=== PATIENT | female | born 1980 | race Caucasian/White ===

== ENCOUNTER 2020-06-10 20:56 | Emergency (ER) | payer SELFPAY ==
[~2020-06-10] VITALS: Wt 86.2 kg
[2020-06-10 22:49] LABS: BASO # 0.1 10*3/uL (0.0-0.1); EOS # 0.1 10*3/uL (0.0-0.4); HEMATOCRIT 29.8 % (37.0-47.0); LYMPH # 1.1 10*3/uL (1.3-4.4); LYMPH % 36.5 % (27.0-41.0); MEAN CELL VOLUME 72.9 fl (81.0-99.0); MEAN CORPUSCULAR HGB 18.3 pg (27.0-31.0); MEAN CORPUSCULAR HGB CONC 25.2 g/dl (33.0-37.0); MONO # 0.3 10*3/uL (0.1-1.0); NEUT # 1.5 10*3/uL (2.3-7.9); NEUT % 49.2 % (47.0-73.0); PLATELET COUNT AUTOMATED 200 10*3/uL (130-400); RED BLOOD COUNT 4.09 10*6/uL (4.10-5.10); RED CELL DISTRI WIDTH 19.5 % (0-14.5)
[2020-06-10 23:05] LABS: ALBUMIN 3.7 gm/dl (3.1-4.5); ALKALINE PHOSPHATASE 46 U/L (45-117); BUN 4 mg/dl (7-24); CHLORIDE 102 mmol/L (98-107); CREATININE 0.41 mg/dL (0.55-1.02); POTASSIUM 3.4 mmol/L (3.5-5.1); SGOT/AST 91 IU/L (3-35); SGPT/ALT 69 U/L (12-78); SODIUM 138 mmol/L (136-145); TOTAL PROTEIN 7.6 gm/dL (6.4-8.2)
[2020-06-10 23:07] LABS: TROPONIN I < 0.015 ng/ml (<0.045)
[2020-06-11 00:50] VITALS: BP 138/81
== END 2020-06-11 01:25 | disposition home or self-care (01) ==
LOC: ED 20:56
PROVIDERS: Emergency Medicine
DX: D64.9 Anemia, unspecified (principal); I10 Essential (primary) hypertension; R00.2 Palpitations; Z53.29 Procedure and treatment not carried out because of patient's decision for other reasons; Z88.8 Allergy status to other drugs, medicaments and biological substances

== ENCOUNTER 2021-02-19 16:37 | Emergency (ER) | payer SELFPAY ==
[~2021-02-19] VITALS: Ht 160 cm; Wt 79.4 kg
[2021-02-19 17:31] LABS: HEMATOCRIT 24.5 % (37.0-47.0); MEAN CELL VOLUME 73.8 fl (81.0-99.0); MEAN CORPUSCULAR HGB 18.7 pg (27.0-31.0); MEAN CORPUSCULAR HGB CONC 25.3 g/dl (33.0-37.0); MEAN PLATELET VOLUME 10.2 fl (9.6-12.3); NUCLEATED RED BLOOD CELL 0.5 % (0.0-0.0); PLATELET COUNT AUTOMATED 323 10*3/uL (130-400); RED BLOOD COUNT 3.32 10*6/uL (4.10-5.10); RED CELL DISTRI WIDTH 19.2 % (0-14.5); WHITE BLOOD COUNT 8.3 10*3/uL (4.8-10.8)
[2021-02-19 17:44] LABS: ALBUMIN 3.5 gm/dl (3.1-4.5); BUN 3 mg/dl (7-24); CHLORIDE 109 mmol/L (98-107); CREATININE 0.47 mg/dL (0.55-1.02); LIPASE 349 U/L (73-393); SGOT/AST 41 IU/L (3-35); SGPT/ALT 36 U/L (12-78); SODIUM 142 mmol/L (136-145); TOTAL PROTEIN 7.3 gm/dL (6.4-8.2)
[2021-02-19 17:45] LABS: ALKALINE PHOSPHATASE 41 U/L (45-117); BETA-HCG, QUANT < 1.0 mIU/mL (1-3); TROPONIN I < 0.015 ng/ml (<0.045)
[2021-02-19 17:49] LABS: ATYPICAL LYMPHS 1 % (0-0); BASOPHILS 2 % (0-1); TOTAL CELLS COUNTED 100 #CELLS
[2021-02-19 17:50] LABS: MICROCYTOSIS MODERATE; PLATELET SUFFICIENCY NORMAL (NORMAL)
[2021-02-19 17:51] LABS: POLYCHROMASIA SLIGHT; STOMATOCYTE FEW
[2021-02-20 08:01] LABS: IRON 16 ug/dL (50-170); TOTAL IRON BINDING CAPACITY 496 ug/dl (250-450)
[2021-02-20 08:02] LABS: ETHYL ALCOHOL < 3.0 mg/dl (<3)
[2021-02-20 08:07] LABS: RETICULOCYTE % 2.14 % (0.50-2.50)
[2021-02-20 08:13] LABS: HEMATOCRIT 22.4 % (37.0-47.0)
[2021-02-20 08:16] LABS: ACT PARTIAL THROMBO TIME 22.5 SECONDS (20.0-32.1); INTERNATIONAL NORM RATIO 1.1 (2.0-3.5)
[2021-02-20 09:35] VITALS: BP 152/85
[2021-02-20] MEDS ORDERED: MIRALAX POWDER17 G1 PO (10:13)
[2021-02-20] MEDS ORDERED: IRON325 M1 PO (10:13)
[2021-02-20 11:27] VITALS: BP 154/85
[2021-02-20 11:54] VITALS: BP 154/87
[2021-02-20 12:12] VITALS: BP 149/92
[2021-02-20 14:00] VITALS: BP 168/93
== END 2021-02-20 14:46 | disposition left against medical advice (07) ==
LOC: ED 16:37
PROVIDERS: Emergency Medicine
DX: F43.21 Adjustment disorder with depressed mood (principal); F10.920 Alcohol use, unspecified with intoxication, uncomplicated; N93.8 Other specified abnormal uterine and vaginal bleeding; D50.9 Iron deficiency anemia, unspecified; Z88.6 Allergy status to analgesic agent; Y90.8 Blood alcohol level of 240 mg/100 ml or more

== ENCOUNTER → 2021-05-14 | Outpatient (CLI) | payer OTHER ==
[~2021-05-14] MED LIST: IRON325 M1 PO; MIRALAX POWDER17 G1 PO
== END | disposition home or self-care (01) ==
LOC: COVID19 15:38
PROVIDERS: ATTEND Internal Medicine
DX: Z11.52 Encounter for screening for COVID-19 (principal)

== ENCOUNTER 2021-08-31 03:12 | Emergency (ER) | payer SELFPAY ==
[~2021-08-31] VITALS: Ht 160 cm; Wt 79.4 kg
[2021-08-31 03:15] VITALS: BP 169/108
[2021-08-31 03:29] LABS: BASO % 0.9 % (0.0-1.0); EOS % 0.5 % (1.0-4.0); HEMATOCRIT 29.4 % (37.0-47.0); LYMPH # 0.7 10*3/uL (1.3-4.4); LYMPH % 16.2 % (27.0-41.0); MEAN CELL VOLUME 79.5 fl (81.0-99.0); MEAN CORPUSCULAR HGB CONC 28.9 g/dl (33.0-37.0); MEAN PLATELET VOLUME 9.6 fl (9.6-12.3); MONO # 0.4 10*3/uL (0.1-1.0); NEUT # 3.2 10*3/uL (2.3-7.9); NEUT % 71.9 % (47.0-73.0); PLATELET COUNT AUTOMATED 165 10*3/uL (130-400); RED CELL DISTRI WIDTH 18.7 % (0-14.5); WHITE BLOOD COUNT 4.4 10*3/uL (4.8-10.8)
[2021-08-31 03:44] LABS: ALBUMIN 3.6 gm/dl (3.1-4.5); ALKALINE PHOSPHATASE 51 U/L (45-117); BUN 4 mg/dl (7-24); CHLORIDE 98 mmol/L (98-107); CREATININE 0.57 mg/dL (0.55-1.02); POTASSIUM 3.2 mmol/L (3.5-5.1); SGOT/AST 50 IU/L (3-35); SGPT/ALT 34 U/L (12-78); SODIUM 136 mmol/L (136-145); TOTAL PROTEIN 7.2 gm/dL (6.4-8.2)
[2021-08-31 03:46] LABS: ETHYL ALCOHOL < 3.0 mg/dl (<3)
[2021-08-31 03:58] LABS: BILIRUBIN Negative (Negative); BLOOD 2+ (Negative); CLARITY Cloudy (Clear); COLOR Yellow (Yellow); GLUCOSE Negative (Negative); KETONE 1+ (Negative); LEUKO ESTERASE Negative (Negative); NITRITE Negative (Negative); PH 7.5 (4.5-8.0); SPECIFIC GRAVITY 1.015 (1.001-1.030)
[2021-08-31 04:04] LABS: BACTERIA 2+; EPITHELIAL CELLS 41-50; RBC 16-20 rbc/hpf (0-2)
[2021-08-31 04:07] LABS: URINE AMPHETAMINES < 1000 (1000ng/ml); URINE BARBITURATES < 200 (200ng/ml); URINE BENZODIAZEPINES < 200 (200ng/ml); URINE CANNABINOIDS (THC) < 50 (50ng/ml); URINE COCAINE < 300 (300ng/ml); URINE METHADONE < 300 (300ng/ml); URINE OPIATES < 300 (300ng/ml)
[2021-08-31 04:09] LABS: URINE PHENCYCLIDINE < 25 (25ng/ml)
== END 2021-08-31 10:45 | disposition home or self-care (01) ==
LOC: ED 03:12
PROVIDERS: Internal Medicine
DX: R56.9 Unspecified convulsions (principal); E87.8 Other disorders of electrolyte and fluid balance, not elsewhere classified; D50.9 Iron deficiency anemia, unspecified; Z88.6 Allergy status to analgesic agent; Z79.899 Other long term (current) drug therapy; Z90.89 Acquired absence of other organs

== ENCOUNTER 2022-01-20 09:45 | Emergency (ER) | payer SELFPAY ==
[2022-01-20 10:17] LABS: BASO # 0.1 10*3/uL (0.0-0.1); BASO % 1.3 % (0.0-1.0); EOS % 0.4 % (1.0-4.0); HEMATOCRIT 25.6 % (37.0-47.0); LYMPH # 0.7 10*3/uL (1.3-4.4); LYMPH % 15.7 % (27.0-41.0); MEAN CORPUSCULAR HGB 20.8 pg (27.0-31.0); MEAN CORPUSCULAR HGB CONC 27.3 g/dl (33.0-37.0); MEAN PLATELET VOLUME 10.2 fl (9.6-12.3); MONO # 0.6 10*3/uL (0.1-1.0); MONO % 12.3 % (3.0-9.0); NEUT # 3.3 10*3/uL (2.3-7.9); NEUT % 69.7 % (47.0-73.0); NUCLEATED RED BLOOD CELL 0.4 % (0.0-0.0); PLATELET COUNT AUTOMATED 253 10*3/uL (130-400); RED BLOOD COUNT 3.37 10*6/uL (4.10-5.10); RED CELL DISTRI WIDTH 25.1 % (0-14.5); WHITE BLOOD COUNT 4.7 10*3/uL (4.8-10.8)
[2022-01-20 11:07] LABS: ALKALINE PHOSPHATASE 63 U/L (45-117); BUN 4 mg/dl (7-24); CHLORIDE 97 mmol/L (98-107); CREATININE 0.62 mg/dL (0.55-1.02); LIPASE 825 U/L (73-393); POTASSIUM 3.1 mmol/L (3.5-5.1); SGOT/AST 100 IU/L (3-35); SGPT/ALT 47 U/L (12-78); SODIUM 134 mmol/L (136-145); TOTAL PROTEIN 6.8 gm/dL (6.4-8.2)
[2022-01-20 11:55] VITALS: BP 106/73
== END 2022-01-20 13:03 | disposition home or self-care (01) ==
LOC: ED 09:45
PROVIDERS: Family Medicine
DX: F10.929 Alcohol use, unspecified with intoxication, unspecified (principal); Y90.9 Presence of alcohol in blood, level not specified

== ENCOUNTER 2022-02-10 08:05 | Emergency (ER) | payer MEDICAID ==
[~2022-02-10] VITALS: Ht 157.4 cm; Wt 65.8 kg
[2022-02-10 08:31] LABS: BASO # 0.1 10*3/uL (0.0-0.1); BASO % 1.5 % (0.0-1.0); EOS # 0.1 10*3/uL (0.0-0.4); EOS % 1.5 % (1.0-4.0); LYMPH # 1.4 10*3/uL (1.3-4.4); LYMPH % 29.3 % (27.0-41.0); MEAN CELL VOLUME 78.1 fl (81.0-99.0); MEAN CORPUSCULAR HGB 21.6 pg (27.0-31.0); MEAN CORPUSCULAR HGB CONC 27.7 g/dl (33.0-37.0); MEAN PLATELET VOLUME 9.4 fl (9.6-12.3); MONO # 0.6 10*3/uL (0.1-1.0); NEUT # 2.5 10*3/uL (2.3-7.9); NEUT % 54.3 % (47.0-73.0); PLATELET COUNT AUTOMATED 133 10*3/uL (130-400); RED BLOOD COUNT 3.33 10*6/uL (4.10-5.10); RED CELL DISTRI WIDTH 23.3 % (0-14.5); WHITE BLOOD COUNT 4.6 10*3/uL (4.8-10.8)
[2022-02-10 08:47] LABS: ACT PARTIAL THROMBO TIME 25.4 SECONDS (20.0-32.1); ALKALINE PHOSPHATASE 77 U/L (45-117); BUN 5 mg/dl (7-24); CHLORIDE 98 mmol/L (98-107); CREATININE 0.52 mg/dL (0.55-1.02); LIPASE 1374 U/L (73-393); POTASSIUM 3.2 mmol/L (3.5-5.1); SGOT/AST 106 IU/L (3-35); SGPT/ALT 36 U/L (12-78); SODIUM 137 mmol/L (136-145); TOTAL PROTEIN 7.3 gm/dL (6.4-8.2)
[2022-02-10 09:28] LABS: BILIRUBIN Negative (Negative); BLOOD 3+ (Negative); CLARITY Cloudy (Clear); GLUCOSE Negative (Negative); KETONE 1+ (Negative); LEUKO ESTERASE 2+ (Negative); NITRITE Negative (Negative); SPECIFIC GRAVITY <= 1.005 (1.001-1.030)
[2022-02-10 09:37] LABS: COLOR Red (Yellow)
[2022-02-10 09:39] LABS: BACTERIA 2+
[2022-02-10 09:46] LABS: URINE AMPHETAMINES < 1000 (1000ng/ml); URINE BARBITURATES < 200 (200ng/ml); URINE BENZODIAZEPINES < 200 (200ng/ml); URINE CANNABINOIDS (THC) < 50 (50ng/ml); URINE COCAINE < 300 (300ng/ml); URINE METHADONE < 300 (300ng/ml); URINE OPIATES < 300 (300ng/ml)
[2022-02-10 09:48] LABS: URINE PHENCYCLIDINE < 25 (25ng/ml)
[2022-02-10 10:42] LABS: IRON 18 ug/dL (50-170); TOTAL IRON BINDING CAPACITY 476 ug/dl (250-450)
[2022-02-10] MEDS ORDERED: MAGNESIUM400 M1 PO (10:54)
[2022-02-10] MEDS ORDERED: NATURE'S BLEND100 M2 PO (10:54)
[2022-02-10] MEDS ORDERED: IRON325 M3 PO (10:54)
[2022-02-10] MEDS ORDERED: POTASSIUM CHLO20 ME3 PO (10:54)
[2022-02-10] MEDS ORDERED: NATURE'S BLEND F1 MG PO (10:59)
[2022-02-10 14:41] VITALS: BP 133/78
== END 2022-02-10 15:06 | disposition home or self-care (01) ==
LOC: ED 08:05
PROVIDERS: Emergency Medicine
DX: F10.929 Alcohol use, unspecified with intoxication, unspecified (principal); D64.9 Anemia, unspecified; E87.6 Hypokalemia; E83.42 Hypomagnesemia; I10 Essential (primary) hypertension; Z88.6 Allergy status to analgesic agent; Y90.9 Presence of alcohol in blood, level not specified

== ENCOUNTER 2022-08-30 15:12 | Inpatient (IN) | payer MEDICAID ==
[~2022-08-30] VITALS: Ht 160 cm; Wt 76.0 kg
[~2022-08-30 15:12] MED LIST changes: +IRON325 M3 PO; +MAGNESIUM400 M1 PO; +NATURE'S BLEND F1 MG PO; +NATURE'S BLEND100 M2 PO; +POTASSIUM CHLO20 ME3 PO
[2022-08-30 15:26] VITALS: BP 163/111
[2022-08-30 16:01] LABS: BASO % 0.6 % (0.0-1.0); EOS % 0.5 % (1.0-4.0); HEMATOCRIT 41.1 % (37.0-47.0); LYMPH % 48.4 % (27.0-41.0); MEAN CELL VOLUME 87.1 fl (81.0-99.0); MEAN CORPUSCULAR HGB 28.8 pg (27.0-31.0); MEAN CORPUSCULAR HGB CONC 33.1 g/dl (33.0-37.0); MEAN PLATELET VOLUME 9.8 fl (9.6-12.3); MONO # 0.6 10*3/uL (0.1-1.0); MONO % 8.8 % (3.0-9.0); NEUT # 2.6 10*3/uL (2.3-7.9); NEUT % 41.4 % (47.0-73.0); PLATELET COUNT AUTOMATED 254 10*3/uL (130-400); RED BLOOD COUNT 4.72 10*6/uL (4.10-5.10); RED CELL DISTRI WIDTH 18.8 % (0-14.5); WHITE BLOOD COUNT 6.2 10*3/uL (4.8-10.8)
[2022-08-30 16:12] LABS: ACT PARTIAL THROMBO TIME 27.5 SECONDS (20.0-32.1)
[2022-08-30 16:18] LABS: ALKALINE PHOSPHATASE 72 U/L (46-116); BETA-HCG, QUANT < 3.0 mIU/mL (0-10); BUN 15 mg/dl (9-23); CHLORIDE 103 mmol/L (98-107); LIPASE 42 U/L (12-53); POTASSIUM 3.7 mmol/L (3.4-5.1); SGPT/ALT 15 U/L (10-49); TOTAL PROTEIN 7.7 gm/dL (6.0-8.0)
[2022-08-31] VITALS (9 sets, daily range): BP systolic 145–183; BP diastolic 90–113
[2022-08-31 06:19] LABS: BASO % 0.5 % (0.0-1.0); EOS % 0.6 % (1.0-4.0); HEMATOCRIT 35.8 % (37.0-47.0); LYMPH # 2.4 10*3/uL (1.3-4.4); LYMPH % 38.4 % (27.0-41.0); MEAN CELL VOLUME 89.3 fl (81.0-99.0); MEAN CORPUSCULAR HGB 29.2 pg (27.0-31.0); MEAN CORPUSCULAR HGB CONC 32.7 g/dl (33.0-37.0); MEAN PLATELET VOLUME 9.9 fl (9.6-12.3); MONO # 0.5 10*3/uL (0.1-1.0); MONO % 7.3 % (3.0-9.0); NEUT # 3.3 10*3/uL (2.3-7.9); PLATELET COUNT AUTOMATED 188 10*3/uL (130-400); RED BLOOD COUNT 4.01 10*6/uL (4.10-5.10); WHITE BLOOD COUNT 6.2 10*3/uL (4.8-10.8)
[2022-08-31 06:29] LABS: ALKALINE PHOSPHATASE 57 U/L (46-116); BUN 12 mg/dl (9-23); CHLORIDE 107 mmol/L (98-107); POTASSIUM 3.7 mmol/L (3.4-5.1); SGPT/ALT 13 U/L (10-49); TOTAL PROTEIN 6.2 gm/dL (6.0-8.0)
[2022-08-31 07:26] LABS: INTERNATIONAL NORM RATIO 1.1 (2.0-3.5)
[2022-08-31 08:59] LABS: BILIRUBIN Negative (Negative); BLOOD Negative (Negative); CLARITY Clear (Clear); COLOR Yellow (Yellow); GLUCOSE Negative (Negative); KETONE Negative (Negative); LEUKO ESTERASE Negative (Negative); NITRITE Negative (Negative); PH 5.5 (4.5-8.0); SPECIFIC GRAVITY 1.015 (1.001-1.030); UROBILINOGEN 0.2 E.U./dl (0.0-1.0)
[2022-08-31 09:10] LABS: URINE AMPHETAMINES Negative (1000ng/ml); URINE BARBITURATES Negative (200ng/ml); URINE BENZODIAZEPINES Negative (200ng/ml); URINE CANNABINOIDS (THC) Negative (50ng/ml); URINE COCAINE Negative (300ng/ml); URINE METHADONE Negative (300ng/ml); URINE OPIATES Negative (300ng/ml); URINE PHENCYCLIDINE Negative (25ng/ml)
[2022-08-31 09:21] LABS: BACTERIA 1+; EPITHELIAL CELLS 31-40; RBC 0-2 rbc/hpf (0-2); WBC 0-2 wbc/hpf (0-5)
[2022-09-01] VITALS (7 sets, daily range): BP systolic 135–157; BP diastolic 58–108
[2022-09-01 04:36] LABS: BASO % 0.5 % (0.0-1.0); EOS # 0.1 10*3/uL (0.0-0.4); EOS % 1.3 % (1.0-4.0); LYMPH # 1.8 10*3/uL (1.3-4.4); LYMPH % 28.9 % (27.0-41.0); MEAN CELL VOLUME 88.6 fl (81.0-99.0); MEAN CORPUSCULAR HGB 29.4 pg (27.0-31.0); MEAN CORPUSCULAR HGB CONC 33.2 g/dl (33.0-37.0); MEAN PLATELET VOLUME 9.5 fl (9.6-12.3); MONO # 0.5 10*3/uL (0.1-1.0); MONO % 8.8 % (3.0-9.0); NEUT # 3.7 10*3/uL (2.3-7.9); NEUT % 60.3 % (47.0-73.0); PLATELET COUNT AUTOMATED 177 10*3/uL (130-400); RED BLOOD COUNT 4.29 10*6/uL (4.10-5.10); RED CELL DISTRI WIDTH 18.2 % (0-14.5); WHITE BLOOD COUNT 6.2 10*3/uL (4.8-10.8)
[2022-09-01 06:11] LABS: ALKALINE PHOSPHATASE 71 U/L (46-116); BUN 6 mg/dl (9-23); CHLORIDE 100 mmol/L (98-107); POTASSIUM 3.2 mmol/L (3.4-5.1); SGPT/ALT 12 U/L (10-49); TOTAL PROTEIN 7.1 gm/dL (6.0-8.0)
[2022-09-02] VITALS: BP 162/95
[2022-09-02 06:34] LABS: BASO % 0.7 % (0.0-1.0); EOS # 0.2 10*3/uL (0.0-0.4); EOS % 4.1 % (1.0-4.0); HEMATOCRIT 36.7 % (37.0-47.0); LYMPH # 1.5 10*3/uL (1.3-4.4); LYMPH % 34.2 % (27.0-41.0); MEAN CELL VOLUME 90.4 fl (81.0-99.0); MEAN CORPUSCULAR HGB 29.1 pg (27.0-31.0); MEAN CORPUSCULAR HGB CONC 32.2 g/dl (33.0-37.0); MEAN PLATELET VOLUME 10.5 fl (9.6-12.3); MONO # 0.3 10*3/uL (0.1-1.0); MONO % 7.5 % (3.0-9.0); NEUT # 2.4 10*3/uL (2.3-7.9); NEUT % 53.3 % (47.0-73.0); PLATELET COUNT AUTOMATED 157 10*3/uL (130-400); RED BLOOD COUNT 4.06 10*6/uL (4.10-5.10); RED CELL DISTRI WIDTH 17.6 % (0-14.5); WHITE BLOOD COUNT 4.4 10*3/uL (4.8-10.8)
[2022-09-02 06:55] LABS: BUN 6 mg/dl (9-23); CHLORIDE 105 mmol/L (98-107); POTASSIUM 3.5 mmol/L (3.4-5.1)
[2022-09-02 08:00] VITALS: BP 127/85
[2022-09-02 12:00] VITALS: BP 123/90
[2022-09-02 16:00] VITALS: BP 136/92
[2022-09-02 20:00] VITALS: BP 134/94
[2022-09-03] VITALS: BP 149/97
[2022-09-03 00:23] VITALS: BP 148/96
[2022-09-03 02:07] VITALS: BP 140/90
[2022-09-03 06:16] VITALS: BP 140/90
[2022-09-03 07:52] LABS: BASO % 0.7 % (0.0-1.0); EOS # 0.2 10*3/uL (0.0-0.4); EOS % 3.5 % (1.0-4.0); HEMATOCRIT 36.5 % (37.0-47.0); LYMPH # 1.9 10*3/uL (1.3-4.4); LYMPH % 32.6 % (27.0-41.0); MEAN CELL VOLUME 92.9 fl (81.0-99.0); MEAN CORPUSCULAR HGB 29.3 pg (27.0-31.0); MEAN CORPUSCULAR HGB CONC 31.5 g/dl (33.0-37.0); MEAN PLATELET VOLUME 10.2 fl (9.6-12.3); MONO # 0.4 10*3/uL (0.1-1.0); MONO % 6.9 % (3.0-9.0); NEUT # 3.2 10*3/uL (2.3-7.9); NEUT % 55.9 % (47.0-73.0); PLATELET COUNT AUTOMATED 149 10*3/uL (130-400); RED BLOOD COUNT 3.93 10*6/uL (4.10-5.10); RED CELL DISTRI WIDTH 17.5 % (0-14.5); WHITE BLOOD COUNT 5.7 10*3/uL (4.8-10.8)
[2022-09-03 08:00] VITALS: BP 139/93
[2022-09-03 11:00] LABS: ALKALINE PHOSPHATASE 54 U/L (46-116); BUN 6 mg/dl (9-23); CHLORIDE 101 mmol/L (98-107); POTASSIUM 3.8 mmol/L (3.4-5.1); SGPT/ALT 16 U/L (10-49); TOTAL PROTEIN 6.7 gm/dL (6.0-8.0)
[2022-09-03 12:00] VITALS: BP 142/96
== END 2022-09-03 11:50 | disposition home or self-care (01) | DRG 775 ==
LOC: ED 15:12 → ICCU 08-31 04:03 → EDHOLD 08-31 04:03 → ICCU 08-31 04:17 → 5E 09-02 13:44
PROVIDERS: Emergency Medicine; Internal Medicine; ADMIT Student in an Organized Health Care Education/Training Program; ATTEND Student in an Organized Health Care Education/Training Program
DX: F10.230 Alcohol dependence with withdrawal, uncomplicated (principal); R56.9 Unspecified convulsions; E87.20 Acidosis, unspecified; F41.9 Anxiety disorder, unspecified; I10 Essential (primary) hypertension; R73.9 Hyperglycemia, unspecified; F33.9 Major depressive disorder, recurrent, unspecified; R45.851 Suicidal ideations; D64.9 Anemia, unspecified; Z88.6 Allergy status to analgesic agent; Z82.49 Family history of ischemic heart disease and other diseases of the circulatory system; Z81.1 Family history of alcohol abuse and dependence

== ENCOUNTER 2022-10-25 09:23 | Emergency (ER) | payer MEDICAID ==
[~2022-10-25] VITALS: Ht 160 cm; Wt 77.1 kg
[2022-10-25 09:37] VITALS: BP 110/83
[2022-10-25] MEDS ORDERED: TRAMADOL HCL50 MG PO (10:02)
== END 2022-10-25 10:15 | disposition home or self-care (01) ==
LOC: ED 09:23
DX: S42.032A Displaced fracture of lateral end of left clavicle, initial encounter for closed fracture (principal); D64.9 Anemia, unspecified; F32.A Depression, unspecified; Z88.5 Allergy status to narcotic agent; Z98.890 Other specified postprocedural states; Z90.89 Acquired absence of other organs; F10.10 Alcohol abuse, uncomplicated; W19.XXXA Unspecified fall, initial encounter; Y93.01 Activity, walking, marching and hiking; Y92.89 Other specified places as the place of occurrence of the external cause; Y99.8 Other external cause status

== ENCOUNTER 2023-03-15 13:24 | Emergency (ER) | payer MEDICAID ==
[~2023-03-15] VITALS: Ht 162.5 cm; Wt 77.1 kg
[~2023-03-15 13:24] MED LIST changes: +TRAMADOL HCL50 MG PO
[2023-03-15 14:34] LABS: BASO # 0.1 10*3/uL (0.0-0.1); BASO % 1.1 % (0.0-1.0); EOS # 0.1 10*3/uL (0.0-0.4); LYMPH # 2.1 10*3/uL (1.3-4.4); LYMPH % 45.9 % (27.0-41.0); MEAN CELL VOLUME 94.8 fl (81.0-99.0); MEAN CORPUSCULAR HGB 31.5 pg (27.0-31.0); MEAN CORPUSCULAR HGB CONC 33.3 g/dl (33.0-37.0); MEAN PLATELET VOLUME 9.5 fl (9.6-12.3); MONO # 0.4 10*3/uL (0.1-1.0); PLATELET COUNT AUTOMATED 241 10*3/uL (130-400); RED BLOOD COUNT 4.22 10*6/uL (4.10-5.10); RED CELL DISTRI WIDTH 18.6 % (0-14.5); WHITE BLOOD COUNT 4.6 10*3/uL (4.8-10.8)
[2023-03-15 14:57] LABS: ALKALINE PHOSPHATASE 66 U/L (46-116); BUN 13 mg/dl (9-23); CHLORIDE 105 mmol/L (98-107); POTASSIUM 3.6 mmol/L (3.4-5.1); SGPT/ALT 9 U/L (10-49); TOTAL PROTEIN 6.8 gm/dL (6.0-8.0)
[2023-03-15] MEDS ORDERED: AMLODIPINE BESYL5 MG PO (18:38)
[2023-03-15 18:41] VITALS: BP 153/102
== END 2023-03-15 19:05 | disposition home or self-care (01) ==
LOC: ED 13:24
PROVIDERS: Internal Medicine
DX: F10.20 Alcohol dependence, uncomplicated (principal); I10 Essential (primary) hypertension; F32.A Depression, unspecified; Z88.6 Allergy status to analgesic agent; Z79.899 Other long term (current) drug therapy; Z98.890 Other specified postprocedural states; Y90.9 Presence of alcohol in blood, level not specified

== ENCOUNTER 2023-03-22 12:11 | Inpatient (IN) | payer MEDICAID ==
[2023-03-22] VITALS (8 sets, daily range): BP systolic 134–165; BP diastolic 75–118
[~2023-03-22] VITALS: Ht 160 cm; Wt 76.5 kg
[~2023-03-22 12:11] MED LIST changes: +AMLODIPINE BESYL5 MG PO
[2023-03-22 13:20] LABS: BASO # 0.1 10*3/uL (0.0-0.1); BASO % 0.8 % (0.0-1.0); EOS # 0.1 10*3/uL (0.0-0.4); EOS % 1.1 % (1.0-4.0); HEMATOCRIT 44.4 % (37.0-47.0); LYMPH # 1.4 10*3/uL (1.3-4.4); LYMPH % 18.8 % (27.0-41.0); MEAN CELL VOLUME 91.4 fl (81.0-99.0); MEAN CORPUSCULAR HGB 31.1 pg (27.0-31.0); MEAN PLATELET VOLUME 10.3 fl (9.6-12.3); MONO # 0.3 10*3/uL (0.1-1.0); MONO % 4.6 % (3.0-9.0); NEUT # 5.5 10*3/uL (2.3-7.9); NEUT % 74.4 % (47.0-73.0); PLATELET COUNT AUTOMATED 175 10*3/uL (130-400); RED BLOOD COUNT 4.86 10*6/uL (4.10-5.10); RED CELL DISTRI WIDTH 18.5 % (0-14.5); WHITE BLOOD COUNT 7.4 10*3/uL (4.8-10.8)
[2023-03-22 14:02] LABS: ACT PARTIAL THROMBO TIME 26.1 SECONDS (20.0-32.1); INTERNATIONAL NORM RATIO 1.1 (2.0-3.5)
[2023-03-22 14:11] LABS: BILIRUBIN Negative (Negative); BLOOD Negative (Negative); CLARITY Cloudy (Clear); COLOR Yellow (Yellow); GLUCOSE Negative (Negative); KETONE 2+ (Negative); LEUKO ESTERASE 1+ (Negative); NITRITE Negative (Negative); PH 5.5 (4.5-8.0); SPECIFIC GRAVITY 1.025 (1.001-1.030)
[2023-03-22 14:18] LABS: BACTERIA 2+; URINE AMPHETAMINES Negative (1000ng/ml); URINE BARBITURATES Negative (200ng/ml); URINE BENZODIAZEPINES Negative (200ng/ml); URINE CANNABINOIDS (THC) Positive (50ng/ml); URINE COCAINE Negative (300ng/ml); URINE METHADONE Negative (300ng/ml); URINE OPIATES Negative (300ng/ml); URINE PHENCYCLIDINE Negative (25ng/ml)
[2023-03-22 14:19] LABS: MUCOUS 1+
[2023-03-22 14:22] LABS: ALKALINE PHOSPHATASE 91 U/L (46-116); BUN 5 mg/dl (9-23); CHLORIDE 98 mmol/L (98-107); ETHYL ALCOHOL 24.3 mg/dl (<3); LIPASE 50 U/L (12-53); POTASSIUM 3.6 mmol/L (3.4-5.1); SGPT/ALT 10 U/L (10-49); TOTAL PROTEIN 7.5 gm/dL (6.0-8.0)
[2023-03-23 01:00] VITALS: BP 155/91
[2023-03-23 04:35] VITALS: BP 155/99
[2023-03-23 06:09] LABS: BUN 6 mg/dl (9-23); CHLORIDE 100 mmol/L (98-107); CHOLESTEROL 263 mg/dL (<200); LDL CHOLESTEROL 145 mg/dL (9-159); TRIGLYCERIDES 204 mg/dl (<150)
[2023-03-23 06:10] LABS: BASO % 0.5 % (0.0-1.0); EOS # 0.2 10*3/uL (0.0-0.4); EOS % 2.6 % (1.0-4.0); HEMATOCRIT 38.5 % (37.0-47.0); LYMPH # 1.2 10*3/uL (1.3-4.4); LYMPH % 19.6 % (27.0-41.0); MEAN CORPUSCULAR HGB 31.4 pg (27.0-31.0); MEAN PLATELET VOLUME 10.8 fl (9.6-12.3); MONO # 0.3 10*3/uL (0.1-1.0); MONO % 5.3 % (3.0-9.0); NEUT # 4.3 10*3/uL (2.3-7.9); NEUT % 71.3 % (47.0-73.0); PLATELET COUNT AUTOMATED 123 10*3/uL (130-400); RED BLOOD COUNT 4.05 10*6/uL (4.10-5.10); RED CELL DISTRI WIDTH 18.2 % (0-14.5); WHITE BLOOD COUNT 6.1 10*3/uL (4.8-10.8)
[2023-03-23 07:02] LABS: VITAMIN D, 25-HYDROXY 21.7 ng/mL (30-100)
[2023-03-23 07:22] LABS: MEAN CELL VOLUME 95.1 fl (81.0-99.0)
[2023-03-23 08:00] VITALS: BP 155/113
[2023-03-23 19:08] VITALS: BP 147/110
[2023-03-24] VITALS (7 sets, daily range): BP systolic 129–158; BP diastolic 86–103
[2023-03-24 08:03] LABS: BUN 6 mg/dl (9-23); CHLORIDE 99 mmol/L (98-107); POTASSIUM 3.5 mmol/L (3.4-5.1)
[2023-03-25] VITALS: BP 140/85
[2023-03-25 08:00] VITALS: BP 134/98
[2023-03-25] MEDS ORDERED: AMLODIPINE BESYL5 MG PO (10:19)
== END 2023-03-25 11:30 | disposition home or self-care (01) | DRG 775 ==
LOC: ED 12:11 → EDHOLD 15:42 → 4E 03-24 17:09
PROVIDERS: Physician Assistant; Student in an Organized Health Care Education/Training Program; ADMIT Internal Medicine; ATTEND Internal Medicine
DX: F10.230 Alcohol dependence with withdrawal, uncomplicated (principal); F10.20 Alcohol dependence, uncomplicated; E87.20 Acidosis, unspecified; I10 Essential (primary) hypertension; D64.9 Anemia, unspecified; F32.A Depression, unspecified; E78.00 Pure hypercholesterolemia, unspecified; R73.9 Hyperglycemia, unspecified; E87.1 Hypo-osmolality and hyponatremia; E87.6 Hypokalemia; E55.9 Vitamin D deficiency, unspecified; Z88.6 Allergy status to analgesic agent; Z82.49 Family history of ischemic heart disease and other diseases of the circulatory system; Z81.1 Family history of alcohol abuse and dependence

== ENCOUNTER 2023-06-08 09:46 | Emergency (ER) | payer MEDICAID ==
[~2023-06-08] VITALS: Wt 74.8 kg
[2023-06-08 10:13] VITALS: BP 142/104
[2023-06-08 11:16] LABS: HEMATOCRIT 38.1 % (37.0-47.0); MANUAL DIFF REFLEX YES; MEAN CELL VOLUME 98.2 fl (81.0-99.0); MEAN CORPUSCULAR HGB 33.5 pg (27.0-31.0); MEAN CORPUSCULAR HGB CONC 34.1 g/dl (33.0-37.0); MEAN PLATELET VOLUME 9.1 fl (9.6-12.3); PLATELET COUNT AUTOMATED 157 10*3/uL (130-400); RED BLOOD COUNT 3.88 10*6/uL (4.10-5.10); RED CELL DISTRI WIDTH 21.2 % (0-14.5); WHITE BLOOD COUNT 2.4 10*3/uL (4.8-10.8)
[2023-06-08 11:26] LABS: ACT PARTIAL THROMBO TIME 25.8 SECONDS (20.0-32.1)
[2023-06-08 11:40] LABS: ALKALINE PHOSPHATASE 58 U/L (46-116); BUN 9 mg/dl (9-23); CHLORIDE 100 mmol/L (98-107); LIPASE 109 U/L (12-53); POTASSIUM 2.9 mmol/L (3.4-5.1); SGPT/ALT 29 U/L (5-49); TOTAL PROTEIN 6.6 gm/dL (6.0-8.0)
[2023-06-08 11:41] LABS: BETA-HCG, QUANT < 3.0 mIU/mL (3-10)
[2023-06-08 11:42] LABS: BASOPHILS 3 % (0-1); PLATELET SUFFICIENCY NORMAL (NORMAL); TOTAL CELLS COUNTED 100 #CELLS
== END 2023-06-08 12:37 | disposition home or self-care (01) ==
LOC: ED 09:46
PROVIDERS: Emergency Medicine
DX: F41.9 Anxiety disorder, unspecified (principal); E87.6 Hypokalemia; Z88.5 Allergy status to narcotic agent; Z90.89 Acquired absence of other organs; F10.10 Alcohol abuse, uncomplicated

== ENCOUNTER 2023-06-11 14:22 | Inpatient (IN) | payer MEDICAID ==
[~2023-06-11] VITALS: Ht 162.5 cm; Wt 77.1 kg
[2023-06-11 14:31] VITALS: BP 95/74
[2023-06-11 14:59] LABS: EOS # 0.1 10*3/uL (0.0-0.4); EOS % 1.3 % (1.0-4.0); HEMATOCRIT 44.6 % (37.0-47.0); LYMPH # 0.6 10*3/uL (1.3-4.4); LYMPH % 15.1 % (27.0-41.0); MEAN CELL VOLUME 98.5 fl (81.0-99.0); MEAN CORPUSCULAR HGB CONC 34.5 g/dl (33.0-37.0); MEAN PLATELET VOLUME 10.4 fl (9.6-12.3); MONO # 0.6 10*3/uL (0.1-1.0); MONO % 15.1 % (3.0-9.0); NEUT # 2.7 10*3/uL (2.3-7.9); NUCLEATED RED BLOOD CELL 0.8 % (0.0-0.0); PLATELET COUNT AUTOMATED 172 10*3/uL (130-400); RED BLOOD COUNT 4.53 10*6/uL (4.10-5.10); RED CELL DISTRI WIDTH 20.8 % (0-14.5)
[2023-06-11 15:28] LABS: ALKALINE PHOSPHATASE 77 U/L (46-116); BUN 5 mg/dl (9-23); CHLORIDE 96 mmol/L (98-107); POTASSIUM 3.7 mmol/L (3.4-5.1); SGPT/ALT 28 U/L (5-49); TOTAL PROTEIN 7.4 gm/dL (6.0-8.0)
[2023-06-11 15:31] LABS: ETHYL ALCOHOL < 3.0 mg/dl (<3)
[2023-06-11 20:18] VITALS: BP 123/98
[2023-06-11 21:17] LABS: URINE AMPHETAMINES Negative (1000ng/ml); URINE BARBITURATES Negative (200ng/ml); URINE BENZODIAZEPINES Negative (200ng/ml); URINE CANNABINOIDS (THC) Positive (50ng/ml); URINE COCAINE Negative (300ng/ml); URINE METHADONE Negative (300ng/ml); URINE OPIATES Negative (300ng/ml); URINE PHENCYCLIDINE Negative (25ng/ml)
[2023-06-12] VITALS: BP 118/80
[2023-06-12 06:01] LABS: ALKALINE PHOSPHATASE 63 U/L (46-116); BUN < 5 mg/dl (9-23); CHLORIDE 101 mmol/L (98-107); CHOLESTEROL 253 mg/dL (<200); LDL CHOLESTEROL 110 mg/dL (9-159); POTASSIUM 3.1 mmol/L (3.4-5.1); SGPT/ALT 21 U/L (5-49); TOTAL PROTEIN 6.3 gm/dL (6.0-8.0); TRIGLYCERIDES 122 mg/dl (<150)
[2023-06-12 06:25] LABS: BASO # 0.1 10*3/uL (0.0-0.1); BASO % 1.2 % (0.0-1.0); EOS # 0.1 10*3/uL (0.0-0.4); EOS % 2.7 % (1.0-4.0); HEMATOCRIT 40.5 % (37.0-47.0); LYMPH % 24.3 % (27.0-41.0); MEAN CORPUSCULAR HGB 34.2 pg (27.0-31.0); MEAN CORPUSCULAR HGB CONC 33.8 g/dl (33.0-37.0); MEAN PLATELET VOLUME 10.3 fl (9.6-12.3); MONO # 0.6 10*3/uL (0.1-1.0); MONO % 13.9 % (3.0-9.0); NEUT # 2.3 10*3/uL (2.3-7.9); NEUT % 57.4 % (47.0-73.0); NUCLEATED RED BLOOD CELL 0.5 % (0.0-0.0); PLATELET COUNT AUTOMATED 152 10*3/uL (130-400); RED BLOOD COUNT 4.01 10*6/uL (4.10-5.10)
[2023-06-12 06:55] LABS: VITAMIN D, 25-HYDROXY 15.9 ng/mL (30-100)
[2023-06-12 08:00] VITALS: BP 128/83
[2023-06-12] MEDS ORDERED: VITAMIN D31250 MCG PO (09:32)
[2023-06-12 12:00] VITALS: BP 125/87
== END 2023-06-12 15:26 | disposition home or self-care (01) | DRG 425 ==
LOC: ED 14:22 → EDHOLD 16:14 → 4E 16:14
PROVIDERS: Family Medicine; Student in an Organized Health Care Education/Training Program; ADMIT Internal Medicine; ATTEND Internal Medicine
DX: E83.42 Hypomagnesemia (principal); D50.9 Iron deficiency anemia, unspecified; E83.51 Hypocalcemia; I10 Essential (primary) hypertension; F41.1 Generalized anxiety disorder; F32.9 Major depressive disorder, single episode, unspecified; F10.20 Alcohol dependence, uncomplicated; R73.9 Hyperglycemia, unspecified; E87.1 Hypo-osmolality and hyponatremia; E87.6 Hypokalemia; E87.8 Other disorders of electrolyte and fluid balance, not elsewhere classified; D72.819 Decreased white blood cell count, unspecified; Z88.5 Allergy status to narcotic agent; Z86.59 Personal history of other mental and behavioral disorders; Z81.1 Family history of alcohol abuse and dependence; Z82.49 Family history of ischemic heart disease and other diseases of the circulatory system

== ENCOUNTER 2023-07-25 12:51 | Emergency (ER) | payer MEDICAID ==
[~2023-07-25] VITALS: Ht 160 cm; Wt 74.8 kg
[~2023-07-25 12:51] MED LIST changes: +VITAMIN D31250 MCG PO
[2023-07-25 14:05] LABS: BASO # 0.1 10*3/uL (0.0-0.1); EOS % 1.2 % (1.0-4.0); HEMATOCRIT 37.5 % (37.0-47.0); LYMPH # 0.6 10*3/uL (1.3-4.4); MEAN CELL VOLUME 95.2 fl (81.0-99.0); MEAN CORPUSCULAR HGB CONC 36.8 g/dl (33.0-37.0); MEAN PLATELET VOLUME 10.6 fl (9.6-12.3); MONO # 0.4 10*3/uL (0.1-1.0); MONO % 15.4 % (3.0-9.0); NEUT # 1.4 10*3/uL (2.3-7.9); NEUT % 56.6 % (47.0-73.0); NUCLEATED RED BLOOD CELL 0.8 % (0.0-0.0); PLATELET COUNT AUTOMATED 100 10*3/uL (130-400); RED BLOOD COUNT 3.94 10*6/uL (4.10-5.10); RED CELL DISTRI WIDTH 20.4 % (0-14.5); WHITE BLOOD COUNT 2.5 10*3/uL (4.8-10.8)
[2023-07-25 14:41] LABS: ALKALINE PHOSPHATASE 140 U/L (46-116); BUN 5 mg/dl (9-23); CHLORIDE 92 mmol/L (98-107); LIPASE 149 U/L (12-53); POTASSIUM 3.1 mmol/L (3.4-5.1); SGPT/ALT 88 U/L (5-49); TOTAL PROTEIN 6.1 gm/dL (6.0-8.0)
[2023-07-25 18:00] VITALS: BP 136/87
== END 2023-07-25 22:00 | disposition short-term general hospital (02) ==
LOC: ED 12:51
PROVIDERS: Family Medicine
DX: R11.2 Nausea with vomiting, unspecified (principal); E83.51 Hypocalcemia; E87.6 Hypokalemia; E83.42 Hypomagnesemia; D64.9 Anemia, unspecified; F32.A Depression, unspecified; Z88.5 Allergy status to narcotic agent; Z90.89 Acquired absence of other organs; F10.10 Alcohol abuse, uncomplicated